=== PATIENT | female | born 1995 | race American Indian/Alaskan Native ===

== ENCOUNTER 2019-10-13 19:51 | Emergency (ER) | payer OTHER ==
[2019-10-13 20:04] VITALS: BP 158/93
[2019-10-13] MEDS ORDERED: SODIUM CHLORIDE 0.9% 1000 ML 1,000 ML IV ONE (20:36)
[2019-10-13] MEDS ORDERED: ASPIRIN 325 MG TAB PO ONE (20:36)
--- NOTE | 2019-10-13 20:42 | XRay Report ---
CHEST 1 VIEW 10/13/2019 8:26 PM INDICATION / CLINICAL INFORMATION: Chest Pain. COMPARISON: None available. FINDINGS: SUPPORT DEVICES: None. HEART / MEDIASTINUM: No significant abnormality. LUNGS / PLEURA: No significant pulmonary or pleural abnormality. No pneumothorax. ADDITIONAL FINDINGS: No significant additional findings. IMPRESSION: 1. No acute abnormality of the chest. Signer Name: Mark Andersen MD Signed: 10/13/2019 8:38 PM Workstation Name: [id number]
[2019-10-13 21:04] LABS: Basophils % (Auto) 0.4 % (0.0-1.8); Eosinophils % (Auto) 0.2 % (0.0-4.3); Hematocrit 41.4 % (30.3-42.9); Hemoglobin 14.1 gm/dl (10.1-14.3); Lymphocytes # (Auto) 1.1 K/mm3 (1.2-5.4); Lymphocytes % (Auto) 14.3 % (13.4-35.0); Mean Corpuscular HGB Conc 34 % (30-34); Mean Corpuscular Volume 89 fl (79-97); Monocytes # (Auto) 0.6 K/mm3 (0.0-0.8); Monocytes % (Auto) 8.3 % (0.0-7.3); Platelet Count 238 K/mm3 (140-440); Red Blood Count 4.64 M/mm3 (3.65-5.03); Red Cell Distribution Width 12.8 % (13.2-15.2)
[2019-10-13 21:12] LABS: Bacteria,Urine 2+ /HPF (Negative); Bilirubin,Urine NEG (Negative); Blood,Urine NEG (Negative); Color,Urine Yellow (Yellow); Mucus,Urine FEW /HPF; Protein,Urine <15 mg/dL mg/dL (Negative)
[2019-10-13 21:28] LABS: Alanine Aminotransferase 15 units/L (7-56); Albumin 4.3 g/dL (3.9-5); BUN/Creatinine Ratio 13; Blood Urea Nitrogen 8 mg/dL (7-17); Calcium 9.6 mg/dL (8.4-10.2); Hemolysis Index 2
[2019-10-13] MEDS ORDERED: diazePAM 10 MG/2 ML SYRINGE IV ONE (22:00)
[2019-10-13] MEDS ORDERED: POTASSIUM CHLORIDE ER 20 MEQ TAB PO ONE (22:11)
--- NOTE | 2019-10-13 22:38 | Cat Scan Report ---
CT angio chest INDICATION / CLINICAL INFORMATION: P.E. PROTOCOL!!! Pt complains of chest pains with slight S.O.B. Pt has a history of respiratory issu es. Omnipaque 350 / 100ml's was used for this exam.. TECHNIQUE: Precontrast bolus timing images were obtained followed by postcontrast axial and reformatted images. 3-plane MIP reconstructions were performed at an independent workstation by the technologist. All CT scans at this location are performed using CT dose reduction for ALARA by means of automated exposure control. COMPARISON: None available. FINDINGS: Enhancement of the pulmonary arteries is normal. No evidence of pulmonary embolus. No acute lung disease. Mediastinal images are normal. No skeletal or upper abdominal abnormality. IMPRESSION: 1. No evidence of pulmonary embolus or acute lung disease. Signer Name: Bert Neil MD Signed: 10/13/2019 10:34 PM Workstation Name: [id number]
--- NOTE | 2019-10-13 22:58 | Emergency Department Report ---
ED Chest Pain HPI - General Chief Complaint: Chest Pain Stated Complaint: CP Source: patient Mode of arrival: Ambulatory Limitations: No Limitations - History of Present Illness Initial Comments: Patient is a nulliparous 24-year-old -[place] female with no past medical history except asthma, anxiety and chronic marijuana abuse who presented to the ED with right-sided nontraumatic nonradiating dull intermittent chest pain for 2 days. Patient states that in the last 12 hours the pain has been more frequent in occurrence and gotten worse. Patient denies chest pain, h eadache, diaphoresis, dizziness, syncope, cough, sore throat, fever, chills, nausea and vomiting, abdominal pain, back pain, heavy lifting, palpitations, fall or traumatic injury, dysuria or urinary frequency and urgency. Patient admits to frequent smoking of marijuana and that she also used albuterol inhaler prior to arrival in the ED. MD Complaint: chest pain (right-sided chest pain), other (nasal and sinus congestion) -: Sudden, days(s) (2) Onset: during rest, awoke with symptoms Pain Location: right chest Pain Radiation: none Severity: moderate Severity scale (0 -10): 4 Quality: dull Consistency: intermittent Improves With: nothing Worsens With: nothing re: denies: nausea, vomting, diaphoresis, dyspnea, sense of impending doom, other Other Symptoms: denies: cough, fever, syncope, rash, acid taste in mouth, leg swelling, palpitations, burping, other Treatments Prior to Arrival: none Aspirin use within the Past 7 Days: (0) No - Related Data On Oral Contraceptives: Yes Previous Rx's Medication Instructions Recorded Last Taken Type Naproxen 500 mg PO Q12H PRN #24 tablet 10/13/19 Unknown Rx hydrOXYzine PAMOATE [Vistaril] 25 mg PO Q6HR PRN #30 capsule 10/13/19 Unknown Rx Allergies Allergy/AdvReac Type Severity Reaction Status Date / Time No Known Allergies Allergy Unverified 10/13/19 20:05 Heart Score - HEART Score History: Slightly suspicious EKG: Non-specific Age: < 45 Risk factors: No known risk factors Troponin: < normal limit HEART Score: 1 - Critical Actions Critical Actions: 0-3 pts:0.9-1.7%risk of adverse cardiac event.Candidate for discharge ED Review of Systems ROS: Stated complaint: CP Other details as noted in HPI Constitutional: denies: chills, fever Eyes: denies: eye pain, eye discharge, vision change ENT: denies: ear pain, throat pain Respiratory: denies: cough, shortness of breath, wheezing Cardiovascular: chest pain (right sided). denies: palpitations, dyspnea on e xertion, edema, syncope Endocrine: no symptoms reported Gastrointestinal: denies: abdominal pain, nausea, diarrhea Genitourinary: denies: urgency, dysuria, discharge Musculoskeletal: denies: back pain, joint swelling, arthralgia Skin: denies: rash, lesions Neurological: denies: headache, weakness, paresthesias Psychiatric: denies: anxiety, depression Hematological/Lymphatic: denies: easy bleeding, easy bruising ED Past Medical Hx - Past Medical History Previous Medical History?: Yes Hx Asthma: Yes - Surgical History Past Surgical History?: No - Social History Smoking Status: Current Every Day Smoker Substance Use Type: Marijuana - Medications Home Medications: Home Medications Medication Instructions Recorded Confirmed Last Taken Type Naproxen 500 mg PO Q12H PRN #24 tablet 10/13/19 Unknown Rx hydrOXYzine PAMOATE [Vistaril] 25 mg PO Q6HR PRN #30 capsule 10/13/19 Unknown Rx ED Physical Exam - General Limitations: No Limitations General appearance: alert, in no apparent distress, anxious - Head Head exam: Present: atraumatic, normocephalic, normal inspection - Eye Eye exam: Present: normal appearance, PERRL Pupils: Present: normal accommodation - ENT ENT exam: Present: normal exam, normal orophraynx, mucous membranes moist, TM's normal bilaterally, normal external ear exam - Neck Neck exam: Present: normal inspection, full ROM - Respiratory Respiratory exam: Present: normal lung sounds bilaterally. Absent: respiratory distress, wheezes, rales, rhonchi, chest wall tenderness, accessory muscle use, decreased breath sounds - Cardiovascular Cardiovascular Exam: Present: normal rhythm, tachycardia, normal heart sounds. Absent: systolic murmur, diastolic murmur, rubs, gallop - GI/Abdominal GI/Abdominal exam: Present: soft, normal bowel sounds. Absent: tenderness, guarding, hyperactive bowel sounds, hypoactive bowel sounds - Extremities Exam Extremities exam: Present: normal inspection, full ROM, normal capillary refill - Back Exam Back exam: Present: normal inspection, full ROM. Absent: tenderness, CVA tenderness (R), CVA tenderness (L), muscle spasm, paraspinal tenderness, vertebral tenderness - Neurological Exam Neurological exam: Present: alert, oriented X3, CN II-XII intact, normal gait, reflexes normal - Psychiatric Psychiatric exam: Present: normal affect, normal mood - Skin Skin exam: Present: warm, dry, intact, normal color. Absent: rash ED Course Vital Signs 10/13/19 20:02 Temperature 98.1 F Pulse Rate 128 H Respiratory 18 Rate Blood Pressure 158/93 O2 Sat by Pulse 100 Oximetry SEVERIANO score - Severiano Score Age > 65: (0) No Aspirin use within the Past 7 Days: (0) No 3 or more CAD Risk Factors: (0) No 2 or more Angina events in past 24 hrs: (0) No Known CAD with more than 50% Stenosis: (0) No Elevated Cardiac Markers: (0) No ST Deviation Greater than 0.5mm: (0) No SEVERIANO Score: 0 ED Medical Decision Making - Lab Data Result diagrams: 10/13/19 20:55 10/13/19 20:55 - EKG Data EKG shows normal: sinus rhythm Rate: tachycardia - Radiology Data Radiology results: report reviewed, image reviewed Findings [facility] [address] [place] [address] XRay Report Signed Patient: MAX GONZALEZ MR#: [id number] : 1995 Acct:[id number] Age/Sex: 24 / F ADM Date: 10/13/19 Loc: ED Attending Dr: Ordering Physician: ANGELA GALICIA DO Date of Service: 10/13/19 Procedure(s): XR chest 1V ap Accession Number(s): [id number] cc: ANGELA GALICIA DO Fluoro Time In Minutes: CHEST 1 VIEW 10/13/2019 8:26 PM INDICATION / CLINICAL INFORMATION: Chest Pain. COMPARISON: None available. FINDINGS: SUPPORT DEVICES: None. HEART / MEDIASTINUM: No significant abnormality. LUNGS / PLEURA: No significant pulmonary or pleural abnormality. No pneumothor ax. ADDITIONAL FINDINGS: No significant additional findings. IMPRESSION: 1. No acute abnormality of the chest. Signer Name: Mark Andersen MD Signed: 10/13/2019 8:38 PM Workstation Name: [id number] Transcribed By: MN Dictated By: Mark Andersen MD Electronically Authenticated By: Mark Andersen MD Signed Date/Time: 10/13/192037 DD/ 37 TD/TT: -------- Findings [facility] [address] [place] [address] Cat Scan Report Signed Patient: MAX GONZALEZ MR#: [id number] : 1995 Acct:[id number] Age/Sex: 24 / F ADM Date: 10/13/19 Loc: ED Attending Dr: Ordering Physician: TYESHA ROTHMAN Date of Service: 10/13/19 Procedure(s): CT angio chest Accession Number(s): [id number] cc: TYESHA ROTHMAN CT angio chest INDICATION / CLINICAL INFORMATION: P.E. PROTOCOL!!! Pt complains of chest pains with slight S.O.B. Pt has a history of respiratory issues. Omnipaque 350 / 100ml's was used for this exam.. TECHNIQUE: Precontrast bolus timing images were obtained followed by postcontrast axial and reformatted images. 3-plane MIP reconstructions were performed at an independent workstation by the technologist. All CT scans at this location are performed using CT dose reduction for ALARA by means of automated exposure control. COMPARISON: None available. FINDINGS: Enhancement of the pulmonary arteries is normal. No evidence of pulmonary embolus. No acute lung disease. Mediastinal images are normal. No skeletal or upper abdominal abnormality. IMPRESSION: 1. No evidence of pulmonary embolus or acute lung disease. Signer Name: Bert Neil MD Signed: 10/13/2019 10:34 PM Workstation Name: [id number] Transcribed By: SOMMER Dictated By: Bert Neil MD Electronically Authenticated By: Bert Neil MD Signed Date/Time: 10/13/192233 DD/ 29 TD/TT: - Medical Decision Making This is a 24-year-old nulliparous -[place] female with no past medical history except asthma, anxiety and chronic marijuana abuse who presented to the ED with right-sided nontraumatic nonradiating dull intermittent chest pain for 2 days. In the ED, patient is alert and oriented x3 and is not in distress but tachycardic and afebrile in triage. EKG shows sinus tachycardia with ventricular rate of 114 bpm, no ST or T wave abnormalities. Lab test results were reviewed and showed elevated d-dimer of 326.88 and mild hypokalemia of 3.3 mmol/L. Patient also received normal saline 1 L IV bolus x1. The rest of the lab test results are nonactionable. Chest x-ray shows no acute cardiopulmonary abnormalities or pneumonitis. CTA chest for PE showed no evidence of PE or any abnormal lung findings. Patient was treated in the ED for anxiety and also given aspirin and potassium chloride tablets. On reevaluation, patient's chest pain resolved, tachycardia also resolved with medications. Patient was counseled on the importance of quitting use of cannabis products and this may exacerbate her tachycardia and anxiety. The patient's heart score is 1 and patient PERC positive due to tachycardia, and d-dimer is elevated but the CTA chest was negative for PE. Therefore patient's tachycardia and chest wall pain are likely due to anxiety and muscle strain. Other differential diagnoses were considered during this treatment process including PE, pneumonia, bronchitis, asthma exacerbation, muscle spasms and muscle strains and anxiety. Patient was discharged home with pain medication and an anxiety medications. Patient was advised to follow-up with her primary care physician in 5 to 7 days for reevaluation or return to the ED immediately if symptoms get worse. - Differential Diagnosis Pneumonia; Bronchitis; PE; Costochondritis; Muscle strain; Critical care attestation.: If time is entered above; I have spent that time in minutes in the direct care of this critically ill patient, excluding procedure time. ED Disposition Clinical Impression: Right-sided chest wall pain, Anxiety as acute reaction to exceptional stress, Cannabis abuse, continuous Disposition: DC-01 TO HOME OR SELFCARE Is pt being admited?: No Does the pt Need Aspirin: No Condition: Stable Instructions: Chest Pain (ED), Costochondritis (ED), Generalized Anxiety Di sorder (ED), Cannabis Abuse (ED) Additional Instructions: All your lab test results are unremarkable as well as imaging reports. Your symptoms are due to chest wall pain and anxiety. Therefore take medication as needed with food and follow-up with your primary care physician in 5 to 7 days for reevaluation or return to the ED immediately if symptoms get worse. Prescriptions: Naproxen 500 mg PO Q12H PRN #24 tablet PRN Reason: Pain , Severe (7-10) hydrOXYzine PAMOATE [Vistaril] 25 mg PO Q6HR PRN #30 capsule PRN Reason: Anxiety Referrals: [facility] [Provider Group] - 3-5 Days Time of Disposition: 23:05 Print Language: [place]
== END 2019-10-13 23:45 | disposition home or self-care (01) ==
LOC: ED 19:51
DX: R07.89 Other chest pain (principal); R09.81 Nasal congestion; F43.9 Reaction to severe stress, unspecified; F06.4 Anxiety disorder due to known physiological condition; F12.10 Cannabis abuse, uncomplicated; J45.909 Unspecified asthma, uncomplicated; F17.200 Nicotine dependence, unspecified, uncomplicated; Z79.899 Other long term (current) drug therapy
CPT/HCPCS: 36415; 71045; 71275; 80053; 81001; 84484; 84703; 85025; 85379; 93005; 93010; 96374; 99284; J3360; J7030; Q9967